=== PATIENT | male | born 1940 | race Caucasian/White ===

== ENCOUNTER 2017-08-27 10:31 | Inpatient (IN) | payer OTHER, BC ==
[~2017-08-27] VITALS: Ht 180.3 cm; Wt 84.1 kg
[2017-08-27 12:06] LABS: HEMATOCRIT 45.6 % (38.0-50.0); MCH 28.4 PG (29.0-34.0); MCHC 33.1 G/DL (30.0-36.0); MCV 85.9 FL (86-99); PLATELET COUNT 385 K/uL (156-360); RBC DIS.WIDTH-CV 12.8 % (11.8-14.6); RED BLOOD COUNT 5.31 M/uL (4.00-5.50); WHITE BLOOD COUNT 14.6 K/uL (4.1-10.2)
[2017-08-27 12:25] LABS: CHLORIDE 102 mEq/L (99-109); POTASSIUM 4.3 mEq/L (3.7-5.4); SODIUM 137 mEq/L (136-147)
[2017-08-27 12:27] LABS: GLUCOSE 120 mg/dL (70-99); TROP-I INTERPRETATION NEGATIVE; TROPONIN-I < 0.01 ng/mL (0.0-0.30)
[2017-08-27 12:28] LABS: ANION GAP 14 MEQ/L (2-14)
[2017-08-27 12:30] LABS: GFR ESTIMATE (CALCULATED) > 59 mL/min/
[2017-08-27 12:31] LABS: UREA NITROGEN (BUN) 15 mg/dL (9-23)
[2017-08-27] MEDS ORDERED: FLUOROURACIL40 GM TP (15:00)
[2017-08-27] MEDS ORDERED: ATORVASTATIN CA20 MG PO (15:01)
[2017-08-27] MEDS ORDERED: CLOPIDOGREL75 MG PO (15:01)
[2017-08-27] MEDS ORDERED: LISINOPRIL2.5 MG PO (15:01)
[2017-08-27] MEDS ORDERED: DUTASTERIDE0.5 MG PO (15:01)
[2017-08-27] MEDS ORDERED: ECOTRIN325 MG PO (15:02)
[2017-08-27] MEDS ORDERED: CENTRUM SILVER1 EAC5 PO (15:03)
[2017-08-27] MEDS ORDERED: VITAMIN C1000 MG PO (15:04)
[2017-08-27] MEDS ORDERED: EXCEDRIN EXTRA1 EACH PO (15:05)
[2017-08-27 16:32] VITALS: BP 142/81
[2017-08-27 20:10] VITALS: BP 131/75
[2017-08-27 23:24] VITALS: BP 130/78
[2017-08-28 03:24] VITALS: BP 151/90
[2017-08-28 06:51] LABS: HEMATOCRIT 42.5 % (38.0-50.0); MCH 27.7 PG (29.0-34.0); MCHC 31.8 G/DL (30.0-36.0); MCV 87.1 FL (86-99); MEAN PLAT.VOLUME 9.1 uM^3 (9.0-12.4); PLATELET COUNT 412 K/uL (156-360); RBC DIS.WIDTH-CV 12.9 % (11.8-14.6); RBC DIS.WIDTH-SD 41.1 % (39-53); RED BLOOD COUNT 4.88 M/uL (4.00-5.50); WHITE BLOOD COUNT 9.4 K/uL (4.1-10.2)
[2017-08-28 07:20] LABS: ANION GAP 6 MEQ/L (2-14); CHLORIDE 108 MEQ/L (99-109); GFR ESTIMATE (CALCULATED) > 59 mL/min/; GLUCOSE 141 mg/dL (70-99); SAMPLE HEMOLYSIS CHECK 0; SAMPLE ICTERIC CHECK 0; SAMPLE LIPEMIA CHECK 0; SODIUM 143 MEQ/L (136-147); UREA NITROGEN (BUN) 16 mg/dL (9-23)
[2017-08-28 07:34] VITALS: BP 138/95
[2017-08-28 11:44] VITALS: BP 152/90
[2017-08-28 15:43] VITALS: BP 132/75
[2017-08-28 20:46] VITALS: BP 131/71
[2017-08-28 23:52] VITALS: BP 168/90
[2017-08-29 04:31] VITALS: BP 144/89
[2017-08-29 06:44] LABS: ADD MIUA? YES; BILIRUBIN NEGATIVE; BLOOD MODERATE; COLOR YELLOW ((YELLOW)); GLUCOSE (STRIP) NEGATIVE; KETONES NEGATIVE; LEUKOCYTES LARGE; NITRITE NEGATIVE; PROTEIN (STRIP) 30; SPECIFIC GRAVITY 1.025 (1.000-1.030); UROBILINOGEN 0.2 MG/DL (0.2-1.0)
[2017-08-29 07:05] VITALS: BP 159/89
[2017-08-29 07:06] LABS: BACTERIA 2+ /HPF; EPITHELIAL CELLS RARE /HPF; MUCUS TRACE /LPF; UCUL ADDED? YES; WHITE BLOOD CELLS 30-40 /HPF (0-5)
[2017-08-29 07:57] LABS: INTERNAL CONTROL VALID? YES
[2017-08-29 11:08] VITALS: BP 170/87
[2017-08-29 11:59] LABS: HEMATOCRIT 42.8 % (38.0-50.0); MCH 27.6 PG (29.0-34.0); MCHC 32.2 G/DL (30.0-36.0); MCV 85.6 FL (86-99); MEAN PLAT.VOLUME 9.1 uM^3 (9.0-12.4); PLATELET COUNT 533 K/uL (156-360); RBC DIS.WIDTH-CV 12.9 % (11.8-14.6); RBC DIS.WIDTH-SD 40.1 % (39-53); WHITE BLOOD COUNT 13.6 K/uL (4.1-10.2)
[2017-08-29 12:41] LABS: ANION GAP 10 MEQ/L (2-14); CHLORIDE 104 MEQ/L (99-109); GFR ESTIMATE (CALCULATED) > 59 mL/min/; GLUCOSE 143 mg/dL (70-99); POTASSIUM 4.3 MEQ/L (3.7-5.4); SAMPLE HEMOLYSIS CHECK 0; SAMPLE ICTERIC CHECK 0; SAMPLE LIPEMIA CHECK 0; SODIUM 139 MEQ/L (136-147); UREA NITROGEN (BUN) 24 mg/dL (9-23)
[2017-08-29 15:07] VITALS: BP 150/81
[2017-08-29 20:08] VITALS: BP 121/83; BP 1219/83
[2017-08-30 00:56] VITALS: BP 136/81
[2017-08-30 03:52] VITALS: BP 162/97
[2017-08-30 07:21] LABS: HEMATOCRIT 40.5 % (38.0-50.0); MCH 27.7 PG (29.0-34.0); MCHC 32.1 G/DL (30.0-36.0); MCV 86.4 FL (86-99); MEAN PLAT.VOLUME 8.9 uM^3 (9.0-12.4); PLATELET COUNT 475 K/uL (156-360); RBC DIS.WIDTH-CV 13.1 % (11.8-14.6); RBC DIS.WIDTH-SD 41.1 % (39-53); RED BLOOD COUNT 4.69 M/uL (4.00-5.50)
[2017-08-30 07:32] VITALS: BP 148/88
[2017-08-30 10:52] VITALS: BP 128/68
[2017-08-30] MEDS ORDERED: MUCINEX600 MG PO (11:21)
[2017-08-30] MEDS ORDERED: LEVAQUIN750 MG PO (11:21)
[2017-08-30] MEDS ORDERED: PREDNISONE20 MG PO (11:21)
[2017-08-30] MEDS ORDERED: VENTOLIN HFA18 GM IH (11:21)
[2017-08-30] MEDS ORDERED: PREDNISONE10 MG PO (11:46)
[2017-08-30] MEDS ORDERED: SYMBICORT60 INHALA1 IH (11:46)
[2017-08-30] MEDS ORDERED: NORVASC2.5 MG PO (12:12)
== END 2017-08-30 14:50 | disposition home or self-care (01) | DRG 871 ==
LOC: EME 10:31 → EDOF 13:25 → 5SOUTH 13:25 → ENRESERV 13:34 → 5SOUTH 14:30
PROVIDERS: Hospitalist; Internal Medicine; Nurse Practitioner Adult Health; Physician Assistant Medical
DX: A40.3 Sepsis due to Streptococcus pneumoniae (principal); J13 Pneumonia due to Streptococcus pneumoniae; I25.10 Atherosclerotic heart disease of native coronary artery without angina pectoris; I10 Essential (primary) hypertension; K21.9 Gastro-esophageal reflux disease without esophagitis; E78.5 Hyperlipidemia, unspecified; N40.0 Benign prostatic hyperplasia without lower urinary tract symptoms; R09.02 Hypoxemia; Z95.5 Presence of coronary angioplasty implant and graft; J98.01 Acute bronchospasm; Z79.02 Long term (current) use of antithrombotics/antiplatelets; Z85.820 Personal history of malignant melanoma of skin; Z86.13 Personal history of malaria
CPT/HCPCS: 71020; 71275; 80048; 81003; 83605; 84484; 85027; 85379; 87040; 87070; 87086; 87205; 87449; 87502; 90686; 93005; 94640; 94640 76; 94760; 94799; 99202; 99281; 99285; J0456; J0696; J1650; J2920; J7030; J7512; S0028